=== PATIENT | male | born 1990 | race Caucasian/White ===

== ENCOUNTER → 2020-04-25 | Outpatient (CLI) | payer BC, OTHER ==
[~2020-04-25] MED LIST: CEPHALEXIN 500500 M3 PO; IBUPROFEN 800800 M1 PO
== END ==
LOC: LAB 11:11
PROVIDERS: ATTEND Hospitalist
DX: R05 Cough (principal); Z20.828 Contact with and (suspected) exposure to other viral communicable diseases